=== PATIENT | female | born 1970 | race Caucasian/White ===

== ENCOUNTER → 2017-02-21 | Outpatient (CLI) | payer BC ==
[2016-06-25 11:32] VITALS: BP 125/80
[~2017-02-21] MED LIST: AMOX1TAB61 PO; DULO60CA6 PO; FAMO40TA4 PO; LEVO100T5 PO; LEVO150T5 PO; LISI-334 PO; LISI1TAB5 PO; METF500T4 PO; OMEP20CA9 PO
--- NOTE | 2017-02-21 16:28 | RAD ---
2 view chest radiograph 02/21/2017 Clinical indication: Pneumonia. Comparison: AP chest radiograph 09/03/2014. Findings: Cardiac and mediastinal silhouettes are within normal limits. There are faint patchy opacities in the left lower lobe best seen on the lateral view. No pleural effusion or pneumothorax. Impression: Patchy opacities in the left lower lobe, may represent atelectasis or infection. Follow-up two-view chest radiograph after a course of therapy is recommended to assess for resolution of the
== END | disposition home or self-care (01) ==
LOC: RAD 16:02
PROVIDERS: ATTEND Nurse Practitioner Family
DX: J18.9 Pneumonia, unspecified organism (principal)
CPT/HCPCS: 71020

== ENCOUNTER → 2017-09-12 | Outpatient (CLI) | payer BC ==
[2016-06-25 11:32] VITALS: BP 125/80
--- NOTE | 2017-09-12 16:32 | RAD ---
Thyroid sonography Clinical indications: Nontoxic single thyroid goiter. E04.1. Thyroid cyst 246.2. Thyroid nodule. Findings: The longitudinal and AP and transverse dimensions of the right lobe are 5.2 cm and 2.2 cm and 2.0 cm respectively. The right lobe is diffusely heterogeneous. The longitudinal and AP and transverse dimensions of the left lobe are 5.3 cm and 1.5 cm and 2.0 cm in size. The left lobe is diffusely heterogeneous. The isthmus is thickened measuring 0.9 cm in thickness and is heterogeneous. IMPRESSION: Enlarged thyroid gland with diffuse heterogeneity. This may be seen with Tasneem's thyroiditis.
== END | disposition home or self-care (01) ==
LOC: US 12:51
PROVIDERS: ATTEND Specialist
DX: E04.1 Nontoxic single thyroid nodule (principal)
CPT/HCPCS: 76536

== ENCOUNTER → 2021-11-18 | Outpatient (CLI) | payer OTHER ==
[2016-06-25 11:32] VITALS: BP 125/80
[~2021-11-18] MED LIST changes: -DULO60CA6 PO; +DULO60CA7 PO; -LISI-334 PO; +LISI1TAB37 PO; -LISI1TAB5 PO; +LISI20TA18 PO; +METF500T16 PO; -METF500T4 PO; +OMEP20CA16 PO; -OMEP20CA9 PO
[2021-11-18 21:08] LABS: IMMUNOGLOBULIN A 151 mg/dL (87-352); IMMUNOGLOBULIN G 1027 mg/dL (586-1602); IMMUNOGLOBULIN M 35 mg/dL (26-217)
== END ==
LOC: LAB 09:20
PROVIDERS: ATTEND Internal Medicine Gastroenterology
DX: R19.7 Diarrhea, unspecified (principal)
CPT/HCPCS: 36415; 82784; 83516